=== PATIENT | female | born 1975 | race Asian ===

== ENCOUNTER 2020-09-29 19:15 | Emergency (ER) | payer OTHER ==
[2020-09-29 19:47] VITALS: BP 115/84; PULSE 91; TEMP 99; BMI 20.1
[2020-09-29] MEDS ORDERED: IBUPROFEN 600 MG TABLET (FP) PO ONE ×2 (19:59→20:25)
== END 2020-09-29 21:00 | disposition home or self-care (01) ==
LOC: JER 19:15
DX: M54.2 Cervicalgia (principal)
CPT/HCPCS: 99283-25